=== PATIENT | male | born 2000 | race Caucasian/White ===

== ENCOUNTER 2019-10-12 14:50 | Emergency (ER) | payer OTHER ==
[~2019-10-12] VITALS: Ht 177.8 cm; Wt 59.0 kg
[~2019-10-12 14:50] MED LIST: CALC500C17 PO
[2019-10-12 15:20] VITALS: BP 128/90
[2019-10-12] MEDS ORDERED: BACITRACIN OINT 500 UNITS/GM PKT TP ONE (15:25)
--- NOTE | 2019-10-12 15:33 | NUR ---
PT TAKEN OFF THE UNIT VIA WHEEL CHAIR FOR XRAY
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
[2019-10-12 16:03] VITALS: BP 125/76
== END 2019-10-12 16:03 | disposition home or self-care (01) ==
LOC: MED 14:50
DX: S61.451A Open bite of right hand, initial encounter (principal); Z79.899 Other long term (current) drug therapy; W54.0XXA Bitten by dog, initial encounter; Y93.89 Activity, other specified; Y92.89 Other specified places as the place of occurrence of the external cause; Y99.8 Other external cause status
CPT/HCPCS: 73130; 90471; 90715; 99283

== ENCOUNTER 2023-01-23 07:10 | Emergency (ER) | payer OTHER ==
[~2023-01-23] VITALS: Ht 177.8 cm; Wt 65.8 kg
[2023-01-23 07:17] VITALS: BP 147/101
--- NOTE | 2023-01-23 08:05 | NUR ---
WALKED WITH PATIENT TO BED 9
[2023-01-23] MEDS ORDERED: IBUP-2213 PO (08:18)
[2023-01-23] MEDS ORDERED: ATA25 PO (08:18)
--- NOTE | 2023-01-23 08:29 | NUR ---
aci given, rx explained questions answered, steady gait home.
[2023-01-23 08:30] VITALS: BP 105/62
== END 2023-01-23 08:30 | disposition home or self-care (01) ==
LOC: MED 07:10
DX: R51.9 Headache, unspecified (principal); F41.9 Anxiety disorder, unspecified; R07.9 Chest pain, unspecified; R00.2 Palpitations; Z79.899 Other long term (current) drug therapy
CPT/HCPCS: 99283